=== PATIENT | male | born 1950 | race Caucasian/White ===

== ENCOUNTER → 2020-11-30 15:37 | Outpatient (CLI) | payer MEDICARE, OTHER, SELFPAY ==
--- NOTE | 2020-11-30 15:38 | DI.MRI.S_ITS ---
PROCEDURE: MR LUMBAR SPINE WO CON INDICATIONS: Lumbar radiculopathy TECHNIQUE: Noncontrast sagittal T1 spin echo and T2 fast echo, sagittal STIR, axial T1 and T2 fast spin echo through the lumbar spine. In cases with scoliosis, additional coronal T2 fast spin echo may be performed. COMPARISON: [facility] [place], CR, XR LUMBAR SPINE WITH OBLIQUES, 03/28/2017, 15:34. FINDINGS: Image quality: Excellent. Alignment and Curvature: There is mild L4-L5 anterolisthesis secondary to facet hypertrophy. Bone Marrow: Mild reactive endplate changes noted adjacent to the L5-S1 disc. No acute vertebral body compression fractures. Spinal Cord: Conus medullaris terminates at the L2 level. Visualized cord demonstrates normal signal and size. Paraspinous Soft Tissues: No paravertebral masses. T12-L1: Normal appearance. L1-L2: Normal appearance. L2-L3: Slight loss of disc signal. Mild, diffuse disc bulge. Mild narrowing of the central canal. Mild bilateral neural foraminal narrowing. No neural compression. L3-L4: Slight loss of disc signal. Mild, diffuse disc bulge. Moderate bilateral facet hypertrophy. Mild narrowing of the central canal. Mild bilateral neural foraminal narrowing. No neural compression. L4-L5: Loss of disc signal. Moderate, diffuse disc bulge. Small central disc protrusion. Severe bilateral facet hypertrophy. Severe narrowing of the central canal with compression of the nerve roots of the cauda equina. Severe right and moderate left neural foraminal narrowing with compression of the exiting right L4 nerve root. Fissure noted in the posterior annulus. L5-S1: Loss of disc signal and height. Mild, diffuse disc bulge. Mild bilateral facet hypertrophy. No central stenosis. Moderate to severe right and severe left neural foraminal narrowing with slight compression of the exiting right L5 nerve root and marked compression of the exiting left L5 nerve root. Fissure noted in the posterior annulus. IMPRESSION: 1. Grade 1 L4-L5 degenerative spondylolisthesis. 2. Multilevel degenerative disc disease. 3. Multilevel facet arthropathy. 4. Severe L3-L4 central canal narrowing with compression of the nerve roots of the cauda equina. 5. Severe right L4-L5 neural foraminal narrowing with compression of the exiting right L4 nerve root. Moderate to severe right and severe left L5-S1 neural foraminal narrowing with compression of the exiting L5 nerve roots. Dictated by: Joann Sinha MD, PhD on 12/01/2020 at 8:39 Approved by: Joann Sinha MD, PhD on 12/01/2020 at 8:42
--- NOTE | 2020-11-30 15:38 | DI.MRI.S_ITS ---
PROCEDURE: MR CERVICAL SPINE WO CON INDICATIONS: Central cord syndrome status post fall TECHNIQUE: Noncontrast sagittal T1 spin echo and T2 fast spin echo, sagittal STIR, foraminal oblique sagittal T2 fast spin echo, and axial gradient echo or T2 fast spin echo through the cervical spine. COMPARISON: None. FINDINGS: Image quality: Excellent. Alignment and Curvature: There is normal bony alignment. Bones: C5-C6 ankylosis. Marrow demonstrates normal overall signal. Spinal Cord: Visualized spinal cord has normal size and signal. No cerebellar tonsillar herniation. Paraspinous Soft Tissues: No paravertebral masses. Prevertebral soft tissues are normal in thickness. C2-C3: Loss of disc signal. No central stenosis. No neural foraminal narrowing. No neural compression. C3-C4: Loss of disc signal and height. Moderate, diffuse disc bulge. Wxch-iv-[id number] narrowing of the central canal. Moderate right and mild left uncovertebral hypertrophy. Severe right and mild left neural foraminal narrowing with compression of the exiting right C4 nerve root. C4-C5: Loss of disc signal and height. Severe, diffuse disc bulge. Mild bilateral facet hypertrophy. Mild bilateral uncovertebral joint hypertrophy. Severe narrowing of the central canal with compression of the cervical spinal cord. Severe bilateral neural foraminal narrowing with compression of the exiting bilateral C5 nerve roots. C5-C6: Complete loss of disc substance with vertebral body ankylosis. Mild bilateral facet hypertrophy. Mild bilateral uncovertebral joint hypertrophy. No central stenosis. Moderate bilateral neural foraminal narrowing. No neural compression. C6-C7: Loss of disc signal and height. Moderate to severe diffuse disc bulge. Mild bilateral facet hypertrophy. Moderate bilateral uncovertebral joint hypertrophy. Severe narrowing of the central canal with slight compression of the cervical spinal cord. Severe bilateral neural foraminal narrowing with compression of the exiting C7 nerve roots. C7-T1: Loss of disc signal. No central stenosis. No neural foraminal narrowing. No neural compression. IMPRESSION: 1. Multilevel degenerative disc disease. 2. Multilevel facet and uncovertebral arthropathy. 3. Severe C4-C5 and C6-C7 central canal narrowing with compression of the cervical spinal cord. 4. Severe bilateral C4-C5 and C6-C7 neural foraminal narrowing with compression of the exiting bilateral C5 and C7 nerve roots. Dictated by: Joann Sinha MD, PhD on 12/01/2020 at 8:31 Approved by: Joann Sinha MD, PhD on 12/01/2020 at 8:37
== END ==
PROVIDERS: PCP Family Medicine; Referring Provider Physical Medicine & Rehabilitation; Visit Provider Physical Medicine & Rehabilitation
DX: S14.129A Central cord syndrome at unspecified level of cervical spinal cord, initial encounter (principal); M50.31 Other cervical disc degeneration, high cervical region; M48.02 Spinal stenosis, cervical region; M47.812 Spondylosis without myelopathy or radiculopathy, cervical region; M43.16 Spondylolisthesis, lumbar region; M47.26 Other spondylosis with radiculopathy, lumbar region; M47.27 Other spondylosis with radiculopathy, lumbosacral region; M51.16 Intervertebral disc disorders with radiculopathy, lumbar region; M51.17 Intervertebral disc disorders with radiculopathy, lumbosacral region; M48.061 Spinal stenosis, lumbar region without neurogenic claudication; M48.07 Spinal stenosis, lumbosacral region
CPT/HCPCS: 72141; 72148

== ENCOUNTER 2020-12-15 14:11 | Outpatient (CLI) | payer MEDICARE, OTHER, SELFPAY ==
[2020-12-15] VITALS (7 sets, daily range): BP systolic 132–151; BP diastolic 83–91; PULSE 94–101; RESP 14–22; TEMP 36.7; O2SAT 96–100
--- NOTE | 2020-12-15 14:14 | DI.RAD.S_ITS ---
PROCEDURE: PAIN L INTERLAMINAR/CAUDAL INJ INDICATIONS: SPONDYLOSIS COMPARISON: [facility], [place], XR LUMBAR SPINE WITH OBLIQUES, 11/16/2020, 13:19. FINDINGS: Fluoroscopic spot filming was performed to verify placement of a spinal needle at the L4-L5 level, as labeled on the films. Appropriate location of the needle tip was confirmed by injection of iodinated contrast. IMPRESSION: Intraprocedural examination within normal limits. Dictated by: Cb Copeland M.D. on 12/15/2020 at 15:05 Approved by: Cb Copeland M.D. on 12/15/2020 at 15:05
[2020-12-15] MEDS: MIDAZOLAM 5 MG/5 ML VIAL IV (15:00)
[2020-12-15] MEDS: fentaNYL 100 MCG/2 ML INJ 50 MCG IV (15:00)
[2020-12-15] MEDS: BUPIVACAINE 0.25% (PF) VIAL 2 ML INJ (15:06)
[2020-12-15] MEDS: BETAMETHASONE 30 MG/5 ML MDV 12 MG INJ (15:07)
[2020-12-15] MEDS: IOPAMIDOL 15 ML VIAL 3 ML INJ (15:07)
[2020-12-15] MEDS: DEXAMETHASONE 10 MG/ML VIAL 20 MG INJ (15:08)
--- NOTE | 2020-12-15 15:17 | P.PCN_ITS ---
Date/Time/Diagnoses Date of procedure: 12/15/20 Time of procedure: 15:17 Pre-procedure diagnosis: 1. HNP WITH RADICULAR FEATURES, 2. MULTILEVEL CENTRAL STENOSIS, Post-procedure diagnosis: same Procedure Notes Procedure: 1. FLUOROSCOPICALLY GUIDED CONTRAST CONTROLLED INTERLAMINAR EPIDURAL STEROID INJECTION -L4/5 Indications: Altaf is referred by Dr. Rodriguez for treatment of Bilateral Foraminal Stenosis R>L LE symptoms. Physician: Mike Mullen Total Fluoroscopy time (seconds): 7 Total sedation minutes: 12 Complications: none Procedure in detail & Post-procedure care: FINDINGS Multilevel Central Spinal Stenosis with Nerve Root Compression DESCRIPTION OF PROCEDURE Fluoroscopically guided, contrast-controlled L4/5 translaminar epidural steroid injection. Following review of allergy and review of potential side effects and complications, including, but not necessarily limited to, infection, allergic reaction, local tissue breakdown, temporary as well as permanent nerve injury, paralysis, stroke and possible , the patient indicated that the patient understood and agreed to proceed. An informed consent document was signed by the patient, witnessed by a nurse, and placed in the patient's chart. Additionally, other treatment options including modalities, medications, and physical therapy were reviewed with the patient. After review of previous anaesthesic history and IV conscious sedation the patient was deemed safe to proceed with today?s procedure with IV conscious sedation as ASA class II designation. Safety time-out was performed to confirm patient ID, procedure to be performed and site of procedure. IV sedation was accomplished with a combination of 3mg of Versed and 50mcg of Fentanyl was administered by the RN after DO order, titrated to patient comfort during the course of the procedure while the patient remained responsive to all verbal commands In the prone position, following sterile prep and drape of the lumbar region, the L4/5 translaminar space was identified fluoroscopically. The skin was anesthetized via a 25-gauge, 1.5inch needle with 1% lidocaine solution. At this point, a 22-gauge short bevel spinal needle was atraumatically introduced and advanced under fluoroscopic guidance into the region of the L4/5 translaminar space. Depth was confirmed on lateral view. Radiological data, including multiple fluoroscopic views of the lumbar spine, reveal a spinal needle at the L4/5 translaminar space. Lateral views then show placement of the needle in the epidural space. Subsequent views show contrast material flowing superiorly and inferiorly in the epidural space. No vascular or intrathecal uptake is observed. At this point, using loss of resistance technique with saline and air, the epidural space was entered. This was confirmed following negative aspiration with injection of approximately 1.5cc of Isovue 200, showing excellent epidural flow without vascular or intrathecal uptake. At this point, 1cc of 1% lidocaine solution combined with 4cc or 20mg of dexamethasone and 12mg betamethasone was injected without incident. The patient tolerated the procedure well without signs or symptoms of compli cations prior to transfer to the recovery area continued monitoring without incident. The patient was then transferred to the recovery area where they were observed for an appropriate period of time after the injection. The patient reported a VAS score of 6 prior to the procedure and a post- procedure VAS of 0. POST OP INSTRUCTIONS The patient was provided a Pain Log to continue to record their response to the target-specific procedure prior to follow-up visit with their referring physician. Additionally, specific post-injection care instructions and a contact number to our office were provided if concerns arise regarding possible complications associated with the procedure are suspected.
== END 2020-12-15 15:38 | disposition home or self-care (01) ==
LOC: RAD 14:13
PROVIDERS: PCP Family Medicine; Referring Provider Physical Medicine & Rehabilitation; Visit Provider Physical Medicine & Rehabilitation
DX: M51.16 Intervertebral disc disorders with radiculopathy, lumbar region (principal); M48.061 Spinal stenosis, lumbar region without neurogenic claudication
CPT/HCPCS: 62323; 99152; J0702; J1100; J2250; J3010

== ENCOUNTER → 2022-10-31 13:57 | Outpatient (CLI) | payer MEDICARE, OTHER, SELFPAY ==
--- NOTE | 2022-10-31 13:59 | DI.RAD.S_ITS ---
PROCEDURE: XR SHOULDER RT MIN 2V INDICATIONS: RIGHT SHOULDER PAIN TECHNIQUE: 3 views of the shoulder were acquired. COMPARISON: None. FINDINGS: Bones: No fractures or dislocations. No suspicious bony lesions. Moderate acromioclavicular and mild glenohumeral osteoarthritic changes. Visualized ribs appear intact. Soft tissues: No suspicious soft tissue calcifications. IMPRESSION: No acute osseous abnormality. If pain persists with conservative management, consider repeat x-ray in 10-14 days or cross-sectional imaging. Mild glenohumeral and moderate acromioclavicular osteoarthritic changes. Dictated by: Khai Simms M.D. on 10/31/2022 at 14:57 Approved by: Khai Simms M.D. on 10/31/2022 at 14:58
== END ==
PROVIDERS: PCP Family Medicine; Referring Provider Physical Medicine & Rehabilitation; Visit Provider Physical Medicine & Rehabilitation
DX: M75.41 Impingement syndrome of right shoulder (principal); M77.11 Lateral epicondylitis, right elbow; S14.129A Central cord syndrome at unspecified level of cervical spinal cord, initial encounter; M50.90 Cervical disc disorder, unspecified, unspecified cervical region; M51.36 Other intervertebral disc degeneration, lumbar region; M17.0 Bilateral primary osteoarthritis of knee; Z98.1 Arthrodesis status
CPT/HCPCS: 20606; 73030; 99214; J0702

== ENCOUNTER 2022-11-15 14:02 | Outpatient (CLI) | payer MEDICARE, OTHER, SELFPAY ==
[2022-11-15] VITALS (8 sets, daily range): BP systolic 117–161; BP diastolic 53–83; PULSE 61–73; RESP 10–20; TEMP 36.3; O2SAT 43–100
--- NOTE | 2022-11-15 14:03 | DI.RAD.S_ITS ---
PROCEDURE: PAIN L INTERLAMINAR/CAUDAL INJ INDICATIONS: SPONDYLOSIS COMPARISON: [facility], XA, PAIN L INTERLAMINAR/CAUDAL INJ, 12/15/2020, 15:06. FINDINGS: Fluoroscopic spot filming was performed to verify placement of a spinal needle at the L4-L5 level, as labeled on the films. Appropriate location of the needle tip was confirmed by injection of iodinated contrast. IMPRESSION: Intraprocedural examination within normal limits. Dictated by: Cb Copeland M.D. on 11/15/2022 at 15:39 Approved by: Cb Copeland M.D. on 11/15/2022 at 15:39
[2022-11-15] MEDS: MIDAZOLAM 2 MG/2 ML VIAL IV (15:16)
[2022-11-15] MEDS: DEXAMETHASONE 10 MG/ML VIAL INJ (15:22)
[2022-11-15] MEDS: BETAMETHASONE 30 MG/5 ML MDV 6 MG INJ (15:22)
[2022-11-15] MEDS: BUPIVACAINE 0.25% (PF) VIAL 2 ML INJ (15:22)
[2022-11-15] MEDS: IOPAMIDOL 15 ML VIAL 3 ML INJ (15:22)
--- NOTE | 2022-11-15 15:29 | P.PCN_ITS ---
Date/Time/Diagnoses Date of procedure: 11/15/22 Time of procedure: 15:29 Pre-procedure diagnosis: 1. HNP WITH RADICULAR FEATURES, 2. MULTILEVEL CENTRAL STENOSIS, Post-procedure diagnosis: same Procedure Notes Procedure: 1. FLUOROSCOPICALLY GUIDED CONTRAST CONTROLLED INTERLAMINAR EPIDURAL STEROID INJECTION -L4/5 Indications: Altaf is referred by Dr. Rodriguez for treatment of Bilateral Foraminal Stenosis R>L LE symptoms. Physician: Mike Mullen Total Fluoroscopy time (seconds): 8 Total sedation minutes: 10 Complications: none Procedure in detail & Post-procedure care: FINDINGS Multilevel Central Spinal Stenosis with Nerve Root Compression DESCRIPTION OF PROCEDURE Fluoroscopically guided, contrast-controlled L4/5 translaminar epidural steroid injection. Following review of allergy and review of potential side effects and complications, including, but not necessarily limited to, infection, allergic reaction, local tissue breakdown, temporary as well as permanent nerve injury, paralysis, stroke and possible , the patient indicated that the patient understood and agreed to proceed. An informed consent document was signed by the patient, witnessed by a nurse, and placed in the patient's chart. Additionally, other treatment options including modalities, medications, and physical therapy were reviewed with the patient. After review of previous anaesthesic history and IV conscious sedation the patient was deemed safe to proceed with today?s procedure with IV conscious sedation as ASA class II designation. Safety time-out was performed to confirm patient ID, procedure to be performed and site of procedure. IV sedation was accomplished with a combination of 2mg of Versed was administered by the RN after DO order, titrated to patient comfort during the course of the procedure while the patient remained responsive to all verbal commands In the prone position, following sterile prep and drape of the lumbar region, the L4/5 translaminar space was identified fluoroscopically. The skin was anesthetized via a 25-gauge, 1.5inch needle with 1% lidocaine solution. At this point, a 22-gauge short bevel spinal needle was atraumatically introduced and advanced under fluoroscopic guidance into the region of the L4/5 translaminar space. Depth was confirmed on lateral view. Radiological data, including multiple fluoroscopic views of the lumbar spine, reveal a spinal needle at the L4/5 translaminar space. Lateral views then show placement of the needle in the epidural space. Subsequent views show contrast material flowing superiorly and inferiorly in the epidural space. No vascular or intrathecal uptake is observed. At this point, using loss of resistance technique with saline and air, the epidural space was entered. This was confirmed following negative aspiration with injection of approximately 1.5cc of Isovue 200, showing excellent epidural flow without vascular or intrathecal uptake. At this point, 1cc of 1% lidocaine solution combined with 2cc or 10mg of dexamethasone and 6mg betamethasone was injected without incident. The patient tolerated the procedure well without signs or symptoms of complications prior to transfer to the recovery area continued monitoring without incident. The patient was then transferred to the recovery area where they were observed for an appropriate period of time after the injection. The patient reported a VAS score of 6 prior to the procedure and a post- procedure VAS of 0. POST OP INSTRUCTIONS The patient was provided a Pain Log to continue to record their response to the target-specific procedure prior to follow-up visit with their referring physician. Additionally, specific post-injection care instructions and a contact number to our office were provided if concerns arise regarding possible complications associated with the procedure are suspected.
== END 2022-11-15 15:47 | disposition home or self-care (01) ==
PROVIDERS: PCP Family Medicine; Referring Provider Physical Medicine & Rehabilitation; Visit Provider Physical Medicine & Rehabilitation
DX: M51.16 Intervertebral disc disorders with radiculopathy, lumbar region (principal); M48.061 Spinal stenosis, lumbar region without neurogenic claudication
CPT/HCPCS: 62323; 99152; J0702; J1100; J2250; J3490

== ENCOUNTER 2023-01-17 08:47 | Outpatient (CLI) | payer MEDICARE, OTHER, SELFPAY ==
[2023-01-17] VITALS (10 sets, daily range): BP systolic 136–194; BP diastolic 66–92; PULSE 56–70; RESP 11–26; TEMP 36.1; O2SAT 98–100
--- NOTE | 2023-01-17 09:15 | DI.RAD.S_ITS ---
PROCEDURE: PAIN C/T TRANFORAMINAL INJECT INDICATIONS: SPINAL STENOSIS COMPARISON: None. FINDINGS: Fluoroscopic spot filming was performed to verify placement of spinal needles at the T7-8 level(s), as labeled on the films. Appropriate location(s) of the needle tip(s) was confirmed by injection of iodinated contrast. IMPRESSION: Needle placement and contrast injection overlying T7-8. Dictated by: Libia Springer M.D. on 01/17/2023 at 15:56 Approved by: Libia Springer M.D. on 01/17/2023 at 15:57
[2023-01-17] MEDS: MIDAZOLAM 2 MG/2 ML VIAL IV ×2 (09:26→09:32)
[2023-01-17] MEDS: iopamidoL 15 ML VIAL 3 ML INJ (09:33)
[2023-01-17] MEDS: BUPIVACAINE 0.25% (PF) VIAL 2 ML INJ (09:33)
[2023-01-17] MEDS: DEXAMETHASONE 10 MG/ML VIAL 20 MG INJ (09:33)
--- NOTE | 2023-01-17 09:50 | P.PCN_ITS ---
Date/Time/Diagnoses Date of procedure: 01/17/23 Time of procedure: 09:50 Pre-procedure diagnosis: 1. FORAMINAL STENOSIS WITH LE SYMPTOMS Post-procedure diagnosis: same Procedure Notes Procedure: 1. FLUOROSCOPICALLY GUIDED CONTRAST CONTROLLED TRANSFORAMINAL EPIDURAL STEROID INJECTION - RIGHT T8/9 TFESI Indications: Altaf is referred by Dr. Rodriguez for treatment of Foraminal Stenosis with Right thoracic Symptoms Physician: Mike Mullen Total Fluoroscopy time (seconds): 18 Total sedation minutes: 12 Complications: none Procedure in detail & Post-procedure care: FINDINGS Foraminal Nerve Root Compression secondary to disc disease and facet hypertrophy DESCRIPTION OF PROCEDURE Following review of allergy and review of potential side effects and complications, including, but not necessarily limited to, infection, allergic reaction, local tissue breakdown, stroke, temporary or permanent nerve injury, paralysis, and possible , the patient indicated that the patient understood and agreed to proceed. An informed consent document was signed by the patient, witnessed by a nurse, and placed in the patient's chart. Additionally, other treatment options including medications, modalities, and physical therapy were reviewed with the patient. After review of previous anaesthesic history and IV conscious sedation the patient was deemed safe to proceed with today?s procedure with IV conscious sedation as ASA class II designation. Safety time-out was performed to confirm patient ID, procedure to be performed and site of procedure. IV sedation was accomplished with a combination of 4mg of Versed was administered by the RN after DO order, titrated to patient comfort during the course of the procedure while the patient remained responsive to all verbal commands In the prone position following sterile prep and drape of the lumbar region, the right T8-9 posterior neuroforamen was identified fluoroscopically. The skin was anesthetized via a 25-gauge 1.5-inch needle with 1% lidocaine solution. At this point, a 25-gauge 3.5-inch spinal needle was atraumatically introduced and advanced under fluoroscopic guidance through the posterior right T8-9 neuroforamen to approximately the anterior aspect of the canal. Depth was confirmed on lateral view. Following negative aspiration, injection of approximately 1.5cc of Isovue 200 under live fluoroscopy in the AP view confirmed excellent flow along the nerve root, into the epidural space without vascular or intrathecal uptake observed Radiological data, including multiple fluoroscopic views reveal the needle placement in the right T8/9 posterior neuroforamen. Subsequent views show flow of contrast material flowing superiorly and inferiorly along the nerve root confirming epidural flow. Subsequently, a test dose of 1.5cc of 1% lidocaine solution was administered and patient was observed for signs or symptoms of complications, including abdominal pain, shortness of breath, bilateral upper or lower extremity weakness, nausea and vomiting, prior to steroid injection. At this point, a total of 2cc or 20mg of dexamethasone was injected without incident. The procedure tolerated the procedure well without signs or symptoms of complications prior to transfer to the recovery area continued monitoring without incident. The patient was then transferred to the recovery area where they were observed for an appropriate time after the injection. The patient reported a VAS score of 7 prior to the procedure and a post- procedure VAS of 0. POST OP INSTRUCTIONS The patient was provided a Pain Log to continue to record their response to the target-specific procedure prior to follow-up visit with their referring physician. Additionally, specific post-injection care instructions and a contact number to our office were provided if concerns arise regarding possible complications associated with the procedure are suspected.
== END 2023-01-17 10:07 | disposition home or self-care (01) ==
PROVIDERS: PCP Family Medicine; Referring Provider Physical Medicine & Rehabilitation; Visit Provider Physical Medicine & Rehabilitation
DX: M48.04 Spinal stenosis, thoracic region (principal); M51.14 Intervertebral disc disorders with radiculopathy, thoracic region; M47.24 Other spondylosis with radiculopathy, thoracic region
CPT/HCPCS: 64479; 99152; J1100; J2250; J3490